=== PATIENT | female | born 2005 | race Caucasian/White ===

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

== ENCOUNTER 2025-06-07 20:28 | Emergency (ER) | payer MEDICAID | END 2025-06-07 22:30 | disposition home or self-care (01) | LOC: MW.ED 20:28 | DX: S93.402A Sprain of unspecified ligament of left ankle, initial encounter (principal); Z88.1 Allergy status to other antibiotic agents; X50.1XXA Overexertion from prolonged static or awkward postures, initial encounter; Y93.89 Activity, other specified | CPT/HCPCS: 73610; 73630; 99283; A9270 ==